=== PATIENT | female | born 1950 | race Caucasian/White ===

== ENCOUNTER 2022-06-03 09:31 | Inpatient (IN) | payer MEDICARE, MEDICAID ==
[~2022-06-03] VITALS: Ht 165.1 cm; Wt 63.5 kg
[~2022-06-03 09:31] MED LIST: BENA-8 PO; DAPS100T PO; EMTR1TAB11 PO; HYDR25TA PO; LEVO50TA8 PO; LEXIVA PO; RITO100T PO; ZIDO300T12 PO
[2022-06-03] MEDS ORDERED: ONDANSETRON HCL 4MG/2ML INJ IV STA (10:02)
[2022-06-03] MEDS ORDERED: SODIUM CHLORIDE 0.9% 1,000 ML IV ONE (10:15)
[2022-06-03 12:38] LABS: CHLORIDE 100 mEq/L (98-107)
[2022-06-03 12:48] LABS: ETHANOL BLOOD < 10 mg/dL
[2022-06-04 12:02] LABS: BASOPHILS % 0.6 % (0.0-2.0); HEMATOCRIT. 34.9 % (36.0-48.0); HEMOGLOBIN. 11.3 g/dL (12.0-16.0); LYMPHOCYTES % 29.1 % (20.0-50.0); MEAN CORPUSCULAR HEMOGLOBIN 24.8 pg (28.0-32.0); MEAN CORPUSCULAR VOLUME 76.6 fL (81.0-99.0); MEAN PLATELET VOLUME 8.5 fl (7.4-10.4); NEUTROPHILS % 54.3 % (40.0-76.0); PLATELET 127 x1000/uL (130-400); RED BLOOD CELL COUNT 4.56 mill/uL (4.2-5.4); RED CELL DISTRIBUTION WIDTH 16.8 % (11.6-14.6)
[2022-06-04] MEDS ORDERED: IPRATROPIUM/ALBUTEROL 0.5-3(2.5)MG/3ML NEB HHN PRN (17:00)
[2022-06-04] MEDS ORDERED: ACETAMINOPHEN 325MG TABLET PO PRN ×2 (17:00)
[2022-06-04] MEDS ORDERED: ONDANSETRON HCL 4MG/2ML INJ IV PRN (17:00)
[2022-06-04] MEDS ORDERED: ACETAMINOPHEN 650MG/20.3ML UDC GT PRN (17:00)
[2022-06-04] MEDS ORDERED: HYDROMORPHONE HCL/PF 2MG/ML CPJ IV PRN (17:00)
[2022-06-04] MEDS ORDERED: CLONIDINE 0.1MG TABLET PO PRN (17:00)
[2022-06-04] MEDS: DEXT 5%/0.9% NACL 1,000 ML IV SCH (17:45)
[2022-06-04] MEDS: ENOXAPARIN 40MG/0.4ML SYR SUBCUT SCH (18:28)
[2022-06-04 20:00] VITALS: BP 141/53
[2022-06-04] MEDS: FAMOTIDINE 20MG/2ML VIAL IV SCH (21:00)
[2022-06-04] MEDS ORDERED: LOPERAMIDE HCL 2MG CAPSULE PO PRN (21:15)
[2022-06-05] VITALS: BP 137/57
[2022-06-05 04:00] VITALS: BP 100/52
[2022-06-05] MEDS: DEXT 5%/0.9% NACL 1,000 ML IV SCH ×2 (07:05→20:25)
[2022-06-05 08:00] VITALS: BP 125/46
[2022-06-05] MEDS: LORAZEPAM 0.5MG TABLET PO PRN ×2 (10:09→17:55)
[2022-06-05 11:23] LABS: CHLORIDE 100 mEq/L (98-107)
[2022-06-05 12:00] VITALS: BP 116/68
[2022-06-05 12:09] LABS: CLARITY URINE CLOUDY (CLEAR); COLOR URINE YELLOW (YELLOW)
[2022-06-05 12:10] LABS: KETONES URINE NEGATIVE (NEGATIVE); NITRITE URINE POSITIVE (NEGATIVE); OCCULT BLOOD URINE 2+ (NEGATIVE); PROTEIN URINE 2+ (NEGATIVE)
[2022-06-05 12:11] LABS: LEUKOCYTE ESTERASE URINE 2+ (NEGATIVE); UROBILINOGEN URINE 0.2 E.U./dL (0.2-1.0)
[2022-06-05] MEDS ORDERED: LIDOCAINE HCL 1% 30ML VIAL (10MG/ML) ONE (13:04)
[2022-06-05 13:28] LABS: HEMATOCRIT. 32.5 % (36.0-48.0); HEMOGLOBIN. 10.5 g/dL (12.0-16.0); MEAN CORPUSCULAR HEMOGLOBIN 25.2 pg (28.0-32.0); MEAN CORPUSCULAR VOLUME 78.4 fL (81.0-99.0); MEAN PLATELET VOLUME 8.8 fl (7.4-10.4); PLATELET 112 x1000/uL (130-400); RED BLOOD CELL COUNT 4.15 mill/uL (4.2-5.4); RED CELL DISTRIBUTION WIDTH 16.9 % (11.6-14.6)
[2022-06-05 14:23] LABS: PLATELET ESTIMATE DECREASED
[2022-06-05] MEDS: METRONIDAZOLE 500 MG PREMIX 100 ML IV SCH ×2 (14:24→18:14)
[2022-06-05] MEDS: FAMOTIDINE 20MG/2ML VIAL IV SCH (14:24)
[2022-06-05] MEDS ORDERED: DIATR MEGLU/DIATRIZOATE SOLN 30ML PO SCH (15:00)
[2022-06-05 16:00] VITALS: BP 127/65
[2022-06-05] MEDS ORDERED: LEVOFLOXACIN 500MG PREMIX 100 ML IV NR (16:00)
[2022-06-05] MEDS: PANTOPRAZOLE SODIUM 40 MG/VIAL IV SCH (17:53)
[2022-06-05] MEDS: ENOXAPARIN 40MG/0.4ML SYR SUBCUT SCH (17:54)
[2022-06-05 18:20] LABS: TOTAL IRON BINDING CAPACITY 217 ug/dL (250-450)
[2022-06-05] MEDS ORDERED: DIATR MEGLU/DIATRIZOATE SOLN 30ML PO NR (18:45)
[2022-06-05] MEDS ORDERED: IOHEXOL-300 100 ML BOTTLE ONE (22:48)
[2022-06-06] VITALS: BP 101/53
[2022-06-06] MEDS: METRONIDAZOLE 500 MG PREMIX 100 ML IV SCH ×2 (01:56→12:44)
[2022-06-06 07:01] LABS: HEMATOCRIT. 29.1 % (36.0-48.0); HEMOGLOBIN. 9.5 g/dL (12.0-16.0); MEAN CORPUSCULAR HEMOGLOBIN 24.9 pg (28.0-32.0); MEAN CORPUSCULAR VOLUME 75.9 fL (81.0-99.0); MEAN PLATELET VOLUME 8.8 fl (7.4-10.4); PLATELET 113 x1000/uL (130-400); RED BLOOD CELL COUNT 3.84 mill/uL (4.2-5.4)
[2022-06-06 08:00] VITALS: BP 95/59
[2022-06-06 09:06] LABS: ABSOLUTE EOSINOPHILS 0.3 x10E3/uL (0.0-0.4); ABSOLUTE LYMPHOCYTES 1.8 x10E3/uL (0.7-3.1); ABSOLUTE MONOCYTES 0.5 x10E3/uL (0.1-0.9); ABSOLUTE NEUTROPHILS 2.1 x10E3/uL (1.4-7.0); BASOPHILS 1 % (Not Estab.); HEMATOCRIT 38.7 % (34.0-46.6); HEMOGLOBIN 11.9 g/dL (11.1-15.9); IMMATURE GRANULOCYTES 1 % (Not Estab.); IMMATURE GRANULOCYTES ABSOLUTE 0.1 x10E3/uL (0.0-0.1); LYMPHOCYTES 39 % (Not Estab.); MEAN CORPUSCULAR HEMOGLOBIN 24.5 pg (26.6-33.0); MEAN CORPUSCULAR HGB CONC. 30.7 g/dL (31.5-35.7); MEAN CORPUSCULAR VOLUME 80 fL (79-97); MONOCYTES 10 % (Not Estab.); NEUTROPHILS 43 % (Not Estab.); PLATELETS 144 x10E3/uL (150-450); RBC 4.86 x10E6/uL (3.77-5.28); RED CELL DISTRIBUTION WIDTH 15.3 % (11.7-15.4); WBC 4.8 x10E3/uL (3.4-10.8)
[2022-06-06] MEDS: DEXT 5%/0.9% NACL 1,000 ML IV SCH ×2 (09:08→23:31)
[2022-06-06] MEDS: PANTOPRAZOLE SODIUM 40 MG/VIAL IV SCH (09:08)
[2022-06-06 10:09] LABS: % CD 3 POS. LYMPHOCYTES 86.6 % (57.5-86.2); % CD 4 POS. LYMPHOCYTES 18.3 % (30.8-58.5); % CD 8 POS. LYMPH 66.2 % (12.0-35.5); ABSOLUTE CD 3 1559 /uL (622-2402); ABSOLUTE CD 4 HELPER 329 /uL (359-1519); ABSOLUTE CD 8 SUPPRESSOR 1192 /uL (109-897); CD4/CD8 RATIO 0.28 (0.92-3.72)
[2022-06-06 12:00] VITALS: BP 103/53
[2022-06-06] MEDS ORDERED: LEVOFLOXACIN 250MG PREMIX 50 ML IV SCH (16:00)
[2022-06-06] MEDS ORDERED: NALOXONE HCL 0.4MG/ML VIAL IV PRN (17:15)
[2022-06-06 20:00] VITALS: BP 118/60
[2022-06-06 20:42] LABS: PLATELET ESTIMATE DECREASED
[2022-06-07] VITALS: BP 118/62
[2022-06-07] MEDS: METRONIDAZOLE 500 MG PREMIX 100 ML IV SCH ×2 (02:15→12:41)
[2022-06-07 04:00] VITALS: BP 109/65
[2022-06-07 08:00] VITALS: BP 113/81
[2022-06-07] MEDS: PANTOPRAZOLE SODIUM 40 MG/VIAL IV SCH (09:00)
[2022-06-07] MEDS ORDERED: LEVOFLOXACIN 250MG TABLET PO SCH (11:00)
[2022-06-07 11:33] LABS: HEMATOCRIT. 30.9 % (36.0-48.0); HEMOGLOBIN. 9.7 g/dL (12.0-16.0); MEAN CORPUSCULAR HEMOGLOBIN 24.4 pg (28.0-32.0); MEAN CORPUSCULAR VOLUME 77.4 fL (81.0-99.0); MEAN PLATELET VOLUME 8.8 fl (7.4-10.4); PLATELET 106 x1000/uL (130-400); RED BLOOD CELL COUNT 3.99 mill/uL (4.2-5.4); RED CELL DISTRIBUTION WIDTH 17.3 % (11.6-14.6)
[2022-06-07 12:00] VITALS: BP 115/71
[2022-06-07] MEDS: ASCORBIC ACID 500 MG TABLET PO SCH ×3 (12:50→18:19)
[2022-06-07] MEDS: DEXT 5%/0.9% NACL 1,000 ML IV SCH (12:52)
[2022-06-07] MEDS: FERROUS SULFATE 325MG TABLET PO SCH ×3 (12:53→18:19)
[2022-06-07] MEDS: ENOXAPARIN 40MG/0.4ML SYR SUBCUT SCH ×2 (18:14→18:19)
[2022-06-07 19:08] LABS: PLATELET ESTIMATE DECREASED
[2022-06-07] MEDS: METRONIDAZOLE 500MG TABLET PO SCH (20:23)
[2022-06-07 22:43] VITALS: BP 136/76
[2022-06-08 00:40] VITALS: BP 140/77
[2022-06-08] MEDS: DEXT 5%/0.9% NACL 1,000 ML IV SCH ×2 (02:17→15:51)
[2022-06-08] MEDS: METRONIDAZOLE 500MG TABLET PO SCH ×3 (06:43→20:38)
[2022-06-08 06:52] VITALS: BP 60/48
[2022-06-08 08:00] VITALS: BP 123/61
[2022-06-08] MEDS: PANTOPRAZOLE SODIUM 40 MG/VIAL IV SCH (08:41)
[2022-06-08] MEDS: ASCORBIC ACID 500 MG TABLET PO SCH ×2 (08:41→18:04)
[2022-06-08] MEDS: FERROUS SULFATE 325MG TABLET PO SCH ×2 (08:41→18:04)
[2022-06-08 11:52] LABS: HEMATOCRIT. 29.7 % (36.0-48.0); HEMOGLOBIN. 9.5 g/dL (12.0-16.0); MEAN CORPUSCULAR HEMOGLOBIN 24.8 pg (28.0-32.0); MEAN CORPUSCULAR VOLUME 77.9 fL (81.0-99.0); MEAN PLATELET VOLUME 8.9 fl (7.4-10.4); PLATELET 111 x1000/uL (130-400); RED BLOOD CELL COUNT 3.82 mill/uL (4.2-5.4); RED CELL DISTRIBUTION WIDTH 17.3 % (11.6-14.6)
[2022-06-08 12:00] VITALS: BP 120/79
[2022-06-08 14:00] LABS: PLATELET ESTIMATE DECREASED
[2022-06-08 16:00] VITALS: BP 124/60
[2022-06-08] MEDS: ENOXAPARIN 40MG/0.4ML SYR SUBCUT SCH (18:25)
[2022-06-08 20:00] VITALS: BP 126/75
[2022-06-09] VITALS: BP 129/77
[2022-06-09 04:00] VITALS: BP 116/69
[2022-06-09] MEDS: DEXT 5%/0.9% NACL 1,000 ML IV SCH ×2 (04:25→17:45)
[2022-06-09] MEDS: METRONIDAZOLE 500MG TABLET PO SCH ×3 (06:42→21:32)
[2022-06-09] MEDS: FERROUS SULFATE 325MG TABLET PO SCH ×2 (06:42→17:50)
[2022-06-09] MEDS: ASCORBIC ACID 500 MG TABLET PO SCH ×2 (06:42→17:50)
[2022-06-09 08:00] VITALS: BP 128/72
[2022-06-09 12:00] VITALS: BP 140/71
[2022-06-09] MEDS: PANTOPRAZOLE SODIUM 40 MG/VIAL IV SCH (12:30)
[2022-06-09 13:15] LABS: HEMATOCRIT. 33.3 % (36.0-48.0); HEMOGLOBIN. 10.7 g/dL (12.0-16.0); MEAN CORPUSCULAR HEMOGLOBIN 24.9 pg (28.0-32.0); MEAN CORPUSCULAR VOLUME 77.8 fL (81.0-99.0); MEAN PLATELET VOLUME 9.3 fl (7.4-10.4); PLATELET 120 x1000/uL (130-400); RED BLOOD CELL COUNT 4.28 mill/uL (4.2-5.4); RED CELL DISTRIBUTION WIDTH 17.6 % (11.6-14.6)
[2022-06-09 16:00] VITALS: BP 118/48
[2022-06-09] MEDS: ENOXAPARIN 40MG/0.4ML SYR SUBCUT SCH (17:45)
[2022-06-09 20:00] VITALS: BP 105/63
[2022-06-10] VITALS: BP 108/65
[2022-06-10 04:00] VITALS: BP 112/73
[2022-06-10] MEDS: METRONIDAZOLE 500MG TABLET PO SCH (06:12)
[2022-06-10 06:35] LABS: PLATELET ESTIMATE SLIGHTLY DECREASED
[2022-06-10] MEDS: DEXT 5%/0.9% NACL 1,000 ML IV SCH ×2 (07:05→20:55)
[2022-06-10 08:00] VITALS: BP_SYST 106; BP_SYST 107; BP_DIAS 61; BP_DIAS 75
[2022-06-10] MEDS: ASCORBIC ACID 500 MG TABLET PO SCH ×2 (09:00→18:06)
[2022-06-10] MEDS: FERROUS SULFATE 325MG TABLET PO SCH ×2 (09:00→18:06)
[2022-06-10] MEDS: PANTOPRAZOLE SODIUM 40 MG/VIAL IV SCH (09:01)
[2022-06-10 09:30] LABS: HEMATOCRIT. 32.7 % (36.0-48.0); HEMOGLOBIN. 10.5 g/dL (12.0-16.0); MEAN CORPUSCULAR HEMOGLOBIN 24.5 pg (28.0-32.0); MEAN CORPUSCULAR VOLUME 76.4 fL (81.0-99.0); MEAN PLATELET VOLUME 9.6 fl (7.4-10.4); PLATELET 135 x1000/uL (130-400); RED BLOOD CELL COUNT 4.28 mill/uL (4.2-5.4)
[2022-06-10 12:00] VITALS: BP 96/51
[2022-06-10 16:00] VITALS: BP 106/61
[2022-06-10 17:23] LABS: PLATELET ESTIMATE NORMAL
[2022-06-10] MEDS: ENOXAPARIN 40MG/0.4ML SYR SUBCUT SCH ×2 (17:45→18:06)
[2022-06-10 20:00] VITALS: BP 116/69
[2022-06-11 08:00] VITALS: BP 123/78
[2022-06-11 08:19] LABS: HEMATOCRIT. 32.7 % (36.0-48.0); HEMOGLOBIN. 10.6 g/dL (12.0-16.0); MEAN CORPUSCULAR HEMOGLOBIN 24.7 pg (28.0-32.0); MEAN CORPUSCULAR VOLUME 76.6 fL (81.0-99.0); PLATELET 137 x1000/uL (130-400); RED BLOOD CELL COUNT 4.28 mill/uL (4.2-5.4); RED CELL DISTRIBUTION WIDTH 17.6 % (11.6-14.6)
[2022-06-11] MEDS: PANTOPRAZOLE SODIUM 40 MG/VIAL IV SCH (09:29)
[2022-06-11] MEDS: FERROUS SULFATE 325MG TABLET PO SCH ×2 (09:29→18:41)
[2022-06-11] MEDS: ASCORBIC ACID 500 MG TABLET PO SCH ×2 (09:29→18:41)
[2022-06-11] MEDS: DEXT 5%/0.9% NACL 1,000 ML IV SCH ×2 (09:45→23:05)
[2022-06-11 12:00] VITALS: BP 139/74
[2022-06-11 16:00] VITALS: BP 119/76
[2022-06-11] MEDS: ENOXAPARIN 40MG/0.4ML SYR SUBCUT SCH (17:45)
[2022-06-11 20:00] VITALS: BP 117/65
[2022-06-11 22:05] LABS: PLATELET ESTIMATE NORMAL
[2022-06-12] VITALS: BP 113/61
[2022-06-12 04:00] VITALS: BP 109/58
[2022-06-12 07:23] LABS: HEMATOCRIT. 29.6 % (36.0-48.0); HEMOGLOBIN. 9.6 g/dL (12.0-16.0); MEAN CORPUSCULAR HEMOGLOBIN 24.7 pg (28.0-32.0); MEAN CORPUSCULAR VOLUME 75.9 fL (81.0-99.0); MEAN PLATELET VOLUME 9.1 fl (7.4-10.4); PLATELET 162 x1000/uL (130-400); RED CELL DISTRIBUTION WIDTH 16.9 % (11.6-14.6)
[2022-06-12 08:00] VITALS: BP 120/64
[2022-06-12] MEDS: PANTOPRAZOLE SODIUM 40 MG/VIAL IV SCH (08:31)
[2022-06-12] MEDS: ASCORBIC ACID 500 MG TABLET PO SCH ×2 (08:31→16:21)
[2022-06-12] MEDS: FERROUS SULFATE 325MG TABLET PO SCH ×2 (08:31→16:21)
[2022-06-12 12:00] VITALS: BP 100/57
[2022-06-12 14:33] LABS: PLATELET ESTIMATE NORMAL
[2022-06-12 16:00] VITALS: BP 133/60
[2022-06-12] MEDS: ENOXAPARIN 40MG/0.4ML SYR SUBCUT SCH (16:57)
[2022-06-12 20:00] VITALS: BP 120/61
[2022-06-13] VITALS: BP 125/65
[2022-06-13 04:00] VITALS: BP 113/63
[2022-06-13 08:00] VITALS: BP 124/53
[2022-06-13] MEDS: ASCORBIC ACID 500 MG TABLET PO SCH ×2 (09:07→18:27)
[2022-06-13] MEDS: FERROUS SULFATE 325MG TABLET PO SCH ×2 (09:07→18:27)
[2022-06-13] MEDS: PANTOPRAZOLE SODIUM 40 MG/VIAL IV SCH (09:08)
[2022-06-13 12:00] VITALS: BP 110/66
[2022-06-13 16:00] VITALS: BP 121/69
[2022-06-13] MEDS: ENOXAPARIN 40MG/0.4ML SYR SUBCUT SCH (17:17)
[2022-06-13 17:20] VITALS: BP 121/69
== END 2022-06-13 20:56 | DRG 249 ==
LOC: ER 09:53 → 6EST 06-04 13:56 → ENRESERV 06-04 14:41 → CANBEDREQ 06-04 15:25 → 6EST 06-12 11:00
PROVIDERS: ADMIT Internal Medicine; ATTEND Internal Medicine
PROC: 02HV33Z Insertion of Infusion Device into Superior Vena Cava, Percutaneous Approach (ICD-10-PCS; principal; 2022-06-05)
PROC: B548ZZA Ultrasonography of Superior Vena Cava, Guidance (ICD-10-PCS; 2022-06-05)
PROC: B518YZA Fluoroscopy of Superior Vena Cava using Other Contrast, Guidance (ICD-10-PCS; 2022-06-05)
DX: A08.4 Viral intestinal infection, unspecified (principal); N17.0 Acute kidney failure with tubular necrosis; E43 Unspecified severe protein-calorie malnutrition; E87.1 Hypo-osmolality and hyponatremia; I48.91 Unspecified atrial fibrillation; D50.9 Iron deficiency anemia, unspecified; N39.0 Urinary tract infection, site not specified; R63.4 Abnormal weight loss; I10 Essential (primary) hypertension; I25.10 Atherosclerotic heart disease of native coronary artery without angina pectoris; R16.1 Splenomegaly, not elsewhere classified; Z68.23 Body mass index [BMI] 23.0-23.9, adult; I25.2 Old myocardial infarction; Z79.899 Other long term (current) drug therapy; Z87.891 Personal history of nicotine dependence
CPT/HCPCS: 36415; 36573; 71045; 74018; 74177; 80048; 80053; 80320; 81003; 82150; 82270; 82607; 82728; 82746; 82962; 82977; 83540; 83550; 83735; 84484; 85025; 85044; 86359; 86360; 87015; 87045; 87077; 87186; 87426; 87427; 87449; 87493; 89055; 93005; 93306; 93970; 97162; 97166; 99291; A6261; C1725; C1893; C9113; J1170; J1650; J1956; J2405; J3490; J7030; J7042; Q9963; Q9967; G0480